=== PATIENT | female | born 1960 | race African-American/Black ===

== ENCOUNTER 2025-09-03 12:25 | Emergency (ER) | payer OTHER, SELFPAY ==
[2025-09-03] VITALS (9 sets, daily range): BP systolic 144–218; BP diastolic 74–102; PULSE 75–117; RESP 22–33; TEMP 37.2; O2SAT 97–100; BMI 59.3
--- NOTE | 2025-09-03 12:38 | ED.CHESTPAIN ---
HPI - Chest Pain General Chief Complaint: Chest Pain Stated Complaint: chest pain d/t being out of BP meds Time Seen by Provider: 09/03/25 12:38 Source: patient, RN notes reviewed and old records reviewed Mode of arrival: Family Vehicle Limitations: no limitations History of Present Illness HPI narrative: 64-year-old female history of coronary artery disease with prior IA, stage 4 chronic kidney disease, hypertension, hypothyroidism, bipolar/schizophrenia who presents with complaint of elevated blood pressure. Patient states she recently ran out of her medications she has been out of them for at least 4 or 5 days she states that is several of her medications but not all. Patient recently moved here from [facility] about 3 weeks ago she has been trying to set up primary care for follow up but has been unsuccessful secondary to insurance issues. Patient notes she has occasionally had some chest discomfort, states none currently. No shortness of breath currently denies fevers or chills. No nausea or vomiting. No GI or urinary symptoms. No diaphoresis. No new swelling of extremities. Patient states she has not had any prior cardiac interventions but did have a heart attack in the past, she has had a thyroidectomy, . No tobacco, no alcohol, has used marijuana but no recreational drugs. Patient states that there has been discussion about following up with Nephrology to get established for future dialysis but has not occurred before leaving [place]. Home medications include aspirin 81 mg daily, trazodone 100 mg nightly, oxybutynin 24 mg daily, nifedipine 30 mg extended release once daily, carvedilol 25 mg b.i.d., lisinopril 40 mg daily, hydralazine 100 mg t.i.d., nitro sublingual 0.4 mcg PRN, furosemide 40 mg daily, levothyroxine 200 mcg daily, senna side 2 tablets daily as needed for constipation. Methocarbamol 750 mg q.i.d., lurasidone 40 mg 1 tablet nightly, sumatriptan 100 mg 1 tablet can repeat 2 hours later for migraines PRN and Ozempic 0.25-0.5 mg as well as Novolin 70/30, with 30 units in the a.m. and 10 units subcutaneous in the p.m. Related Data Home Medications ?Medication ?Instructions ?Recorded ?Confirmed aspirin 81 mg tablet 81 mg PO DAILY 09/03/25 09/03/25 hydralazine 100 mg tablet 100 mg PO TID 09/03/25 09/03/25 methocarbamol 750 mg tablet 750 mg PO QID PRN muscle spasm 09/03/25 09/03/25 nitroglycerin 0.4 mg sublingual 0.4 mg sublingual Q5-15M PRN chest 09/03/25 09/03/25 tablet (Nitrostat) pain sennosides 8.6 mg-docusate sodium 2 tab-cap PO DAILY PRN constipation 09/03/25 09/03/25 50 mg tablet (Senna with Docusate Sodium) sumatriptan succinate 100 mg tablet 100 mg PO .at start of headache 09/03/25 09/03/25 PRN migraine headache Previous Rx's ?Medication ?Instructions ?Recorded carvedilol 25 mg tablet 25 mg PO BID #60 caps 09/03/25 carvedilol 25 mg tablet 25 mg PO BID #60 tabs 09/03/25 furosemide 40 mg tablet 40 mg PO DAILY #30 tabs 09/03/25 furosemide 40 mg tablet 40 mg PO DAILY #30 tabs 09/03/25 hydralazine 100 mg tablet 100 mg PO TID #90 tabs 09/03/25 hydralazine 100 mg tablet 100 mg PO TID #90 tabs 09/03/25 insulin NPH-regular 70-30 U-100 See Rx Instructions .Route 09/03/25 insulin 100 unit/mL subcutaneous .COMPLEX #15 mL pen (Novolin 70-30 FlexPen U-100 Insulin) levothyroxine 200 mcg capsule 200 mcg PO DAILY #30 caps 09/03/25 levothyroxine 200 mcg capsule 200 mcg PO DAILY #30 caps 09/03/25 lisinopril 40 mg tablet 40 mg PO DAILY #30 tabs 09/03/25 lisinopril 40 mg tablet 40 mg PO DAILY #30 tabs 09/03/25 lurasidone 40 mg tablet 40 mg PO QPM #30 tabs 09/03/25 lurasidone 40 mg tablet 40 mg PO QPM sleep #30 tabs 09/03/25 nifedipine 30 mg tablet,extended 30 mg PO DAILY #30 tabs 09/03/25 release nifedipine 30 mg tablet,extended 30 mg PO DAILY #30 tabs 09/03/25 release oxybutynin chloride 5 mg tablet 5 mg PO DAILY #30 tabs 09/03/25 oxybutynin chloride 5 mg 5 mg PO DAILY #30 tabs 09/03/25 tablet,extended release 24 hr semaglutide 0.25 mg or 0.5 mg (2 0.5 mg (0.374 mL) SUBCUT QWEEK 09/03/25 mg/1.5 mL) subcutaneous pen #1.5 mL injector semaglutide 0.25 mg or 0.5 mg (2 0.5 mg (0.736 mL) SUBCUT QWEEK #4 09/03/25 mg/3 mL) subcutaneous pen injector mL (Ozempic) trazodone 100 mg tablet 100 mg PO BEDTIME #30 tabs 09/03/25 trazodone 100 mg tablet 100 mg PO BEDTIME PRN sleep #30 09/03/25 tabs Allergies Allergy/AdvReac Type Severity Reaction Status Date / Time No Known Drug Allergies Allergy Verified 09/03/25 12:37 Review of Systems Review of Systems ROS Unobtainable: All systems reviewed & are unremarkable except as noted in HPI and below Patient History Social History Smoking Status: Current every day smoker Exam Narrative Exam Narrative: GENERAL: Alert and oriented x three, female in mild distress. HEENT: Head normocephalic, atraumatic, EOMI, pupils reactive, face symmetric, moist mucous membranes NECK: Supple, full range of motion CARDIOVASCULAR: Regular rate and rhythm without murmurs, rubs or gallops. No JVD. No edema bilateral lower extremities. RESPIRATORY: Breath sounds equal bilaterally, no wheezes rales or rhonchi. No tachypnea or accessory muscle use. ABDOMEN: Soft, nontender. Normoactive bowel sounds all 4 quadrants. No guarding or rebound, rigidity, no mass : No CVA tenderness EXTREMITIES: Normal range of motion, no clubbing or edema. Neurovascularly intact NEUROLOGICAL: Cranial nerves II through XII grossly intact. Moving all extremities SKIN: Warm, dry, no petechiae, no rashes or lesions. Initial Vital Signs Initial Vital Signs: Vital Signs Pulse Rate 117 H 09/03/25 12:34 Pulse Oximetry 99 09/03/25 12:34 Course Orders Ordered: ED Orders 09/03/25 12:45 XR chest 1V Stat EKG-12 Lead Stat 09/03/25 12:50 Complete Blood Count AUTO DIFF Stat Comprehensive Metabolic Panel Stat Lipase Stat Magnesium Stat NT-proBNP (BNP-Adult 18+) Stat PTT Partial Thromboplastin Eliot Stat Prothrombin Time INR Stat Troponin & CK Cardiac Panel Stat 09/03/25 12:53 Consult to INSTRUMENTATION SPECIALIST - Gauge Operator Stat Discontinued Medications Lisinopril (Lisinopril 20 Mg Tablet) 40 mg PO NOW ONE Stop: 09/03/25 13:57 Last Admin: 09/03/25 14:19 Dose: 40 mg Documented By: DKB Nitroglycerin (Nitroglycerin 0.4 Mg Sl Tab) 0.4 mg SL NOW ONE Stop: 09/03/25 12:46 Last Admin: 09/03/25 12:48 Dose: 0.4 mg Documented By: RB Vital Signs Vital signs: Vital Signs - 8 hr 09/03/25 12:34 09/03/25 12:36 09/03/25 12:36 Temperature Pulse Rate 117 H 96 H Respiratory Rate 25 H Blood Pressure 216/102 H Pulse Oximetry 99 100 Oxygen Delivery Method 09/03/25 12:37 09/03/25 12:48 09/03/25 12:54 Temperature 99 F Pulse Rate 90 82 Respiratory Rate 28 H Blood Pressure 218/102 H 218/102 H 144/74 H Pulse Oximetry 97 Oxygen Delivery Method Room Air 09/03/25 12:54 09/03/25 13:00 09/03/25 13:00 Temperature Pulse Rate 85 78 Respiratory Rate 24 22 Blood Pressure 178/94 H Pulse Oximetry 100 100 Oxygen Delivery Method 09/03/25 13:30 09/03/25 13:30 09/03/25 14:00 Temperature Pulse Rate 80 78 Respiratory Rate 33 H Blood Pressure 184/86 H Pulse Oximetry 99 98 Oxygen Delivery Method 09/03/25 14:00 09/03/25 14:19 Temperature Pulse Rate 75 Respiratory Rate Blood Pressure 159/80 H 159/80 H Pulse Oximetry Oxygen Delivery Method MDM - Chest Pain Lab Data 09/03/25 12:50 09/03/25 12:50 Labs: Lab Results 09/03/25 Range/Units 12:50 WBC 7.9 (4.5-11.0) X10^3/uL RBC 4.28 (4.0-5.2) X10^6/uL Hgb 11.1 L (12.0-16.0) g/dL Hct 34.4 L (36-46) % MCV 80.5 (80-100) fL MCH 25.9 L (26-34) PG MCHC 32.2 (30-36) % RDW 18.2 H (11.6-14.8) % Plt Count 223 (150-400) X10^3/uL Neut % (Auto) 73.3 (50-75) % Lymph % (Auto) 19.1 L (25-40) % Miller % (Auto) 5.2 (3-14) % Eos % (Auto) 1.4 L (2-4) % Baso % (Auto) 1.0 (0-2) % Neut # (Auto) 5800 (7872-0473) /uL Lymph # (Auto) 1500 (2672-2041) /uL Miller # (Auto) 400 (0-900) /uL Eos # (Auto) 100 (0-450) /uL Baso # (Auto) 100 (0-100) /uL PT 11.8 (9.4-12.5) SECONDS INR 1.0 (0.9-1.3) APTT 25 L (25.1-36.5) SECONDS Sodium 143 (137-145) mmol/L Potassium 3.3 L (3.4-5.1) mmol/L Chloride 108 H (98-107) mmol/L Carbon Dioxide 25 (22-32) mmol/L BUN 9 (7-17) mg/dL Creatinine 1.51 H (0.52-1.04) mg/dL Estimated GFR 39 L (>60) mL/min BUN/Creatinine Ratio 6.0 (6-22) Glucose 124 H (70-99) mg/dL Calcium 8.6 (8.4-10.2) mg/dL Magnesium 1.8 (1.6-2.3) mg/dL Total Bilirubin 0.5 (0.2-1.3) mg/dL AST 23 (14-36) IU/L ALT 17 (<35) IU/L Alkaline Phosphatase 70 (38-126) U/L Total Creatine Kinase 142 H (30-135) U/L Troponin I 0.015 (0.01-0.034) ng/mL NT-Pro-B Natriuret Pep 410 H (<125) pg/mL Total Protein 8.1 (6.3-8.2) g/dL Albumin 4.3 (3.5-5.0) g/dL Globulin 3.8 (1.7-4.1) g/dL Albumin/Globulin Ratio 1.1 (1.0-2.8) Lipase 176 (23-300) U/L ECG Data Attestation: I personally reviewed and interpreted this ECG as follows: Prior ECG tracings: not available for review Interpretation: Sinus rhythm rate 85 MA 146 QRS 86 QTC of 459, no acute ST-elevation nonspecific change. No priors for comparison. MDM Narrative Medical decision making narrative: 64-year-old female known coronary artery disease, chronic kidney disease stage 4, hypertension, hypothyroidism, bipolar/schizophrenia is out of several of her medications particularly blood pressure medications. She is out of her oxybutynin, carvedilol, lisinopril and hydralazine. We will obtain labs to check for any major changes to labs patient notes she has CKD stage 4. She has had some chest discomfort at times but also been quite hypertensive. She is 210 systolic over 100 diastolic here in the department. Suspect patient's chest discomfort maybe related to her hypertensive has been out of her medications. Labs show white count 7.9 hemoglobin 11.1, platelets are 223, INR is 1 with a PTT of 25. Patient's potassium slightly low at 3.3 chloride is 108 creatinine is 1.51 with a GFR of 39 BUN normal at 9, glucose is 124 LFTs are otherwise appropriate troponin 0.015 with a BNP of 410 total CK is 142. EKG sinus rhythm rate [address] changes Chest x-ray formal read shows interstitial prominence seen throughout has not nonspecific maybe related to pulmonary edema consider atypical infection including viral pneumonia low lung volumes noted postoperative did not arm changes are seen. Patient received a dose of nitro sublingual. On re-evaluation repeat blood pressure is 180s over 86. Discussed with the patient plan for discharge with refills of her medications for 30 days. Patient had an adequate supply of some of her other medications. Patient requesting discharge home. Patient did meet with the INSTRUMENTATION SPECIALIST to see about getting her a follow up appointment or help with adjusting her insurance from [place] to [place]. Discussed she can call back to chat or meet with our psychiatric social worker supervisor for assistance as needed. Discharge Plan Departure Patient Disposition: Home Clinical Impression: Hypertension Activity Restrictions/Additional Instructions: Follow up with the application to switch your insurance. If you have questions you can reach out to our psychiatric social worker supervisor at [phone] (ED number), they are typically here between 11a-7p most days of the week and weekend. I did include contact for nephrology, they may have an office in [place]. The next closest nephrology is in [place]. [facility] [place]. If you have new or concerning changes please return to the emergency department, new chest pain, new shortness of breath, lightheadedness or passing out, new swelling of your extremities or other new or concerning changes. Prescriptions: New carvedilol 25 mg tablet 25 mg PO BID Qty: 60 0RF Rx Instructions: must administer with a meal/food furosemide 40 mg tablet 40 mg PO DAILY Qty: 30 0RF nifedipine 30 mg tablet extended release 30 mg PO DAILY Qty: 30 0RF trazodone 100 mg tablet 100 mg PO BEDTIME Qty: 30 0RF hydralazine 100 mg tablet 100 mg PO TID Qty: 90 0RF lisinopril 40 mg tablet 40 mg PO DAILY Qty: 30 0RF lurasidone 40 mg tablet 40 mg PO QPM Qty: 30 0RF Rx Instructions: must administer with food (at least 350 calories) semaglutide 0.25 mg or 0.5 mg(2 mg/1.5 mL) pen injector 0.5 mg SUBCUT QWEEK Qty: 1.5 0RF levothyroxine 200 mcg capsule 200 mcg PO DAILY Qty: 30 0RF Novolin 70-30 FlexPen U-100 100 unit/mL (70-30) insulin pen See Rx Instructions .ROUTE .COMPLEX Qty: 15 0RF Rx Instructions: 30units subcutaneous q.a.m., 10 units subcutaneous q.p.m. oxybutynin chloride 5 mg tablet 5 mg PO DAILY Qty: 30 0RF Continued furosemide 40 mg tablet 40 mg PO DAILY Qty: 30 0RF carvedilol 25 mg tablet 25 mg PO BID Qty: 60 0RF Rx Instructions: must administer with a meal/food nifedipine 30 mg tablet extended release 30 mg PO DAILY Qty: 30 0RF trazodone 100 mg tablet 100 mg PO BEDTIME PRN (Reason: sleep) Qty: 30 0RF hydralazine 100 mg tablet 100 mg PO TID Qty: 90 0RF oxybutynin chloride 5 mg tablet extended release 24hr 5 mg PO DAILY Qty: 30 0RF lisinopril 40 mg tablet 40 mg PO DAILY Qty: 30 0RF lurasidone 40 mg tablet 40 mg PO QPM Qty: 30 0RF Rx Instructions: must administer with food (at least 350 calories) levothyroxine 200 mcg capsule 200 mcg PO DAILY Qty: 30 0RF Ozempic 0.25 mg or 0.5 mg (2 mg/3 mL) pen injector 0.5 mg SUBCUT QWEEK Qty: 4 0RF No Action methocarbamol 750 mg tablet 750 mg PO QID PRN (Reason: muscle spasm) sumatriptan succinate 100 mg tablet 100 mg PO .at start of headache PRN (Reason: migraine headache) Rx Instructions: take 1 tab at onset of headache; if no relief, may repeat 1 tab after at least 2 hrs; max = 2 tabs/24 hrs sennosides-docusate sodium [Senna with Docusate Sodium] 8.6-50 mg tablet 2 tab-cap PO DAILY PRN (Reason: constipation) hydralazine 100 mg tablet 100 mg PO TID nitroglycerin [Nitrostat] 0.4 mg tablet, sublingual 0.4 mg sublingual Q5-15M PRN (Reason: chest pain) Rx Instructions: do not exceed 3 doses per episode aspirin 81 mg tablet 81 mg PO DAILY Referrals: Lexx Rincon PA-C [Non-Staff, Nephrology] Stand Alone Forms: Patient Portal/API
--- NOTE | 2025-09-03 12:45 | DI.RAD.S_ITS ---
PROCEDURE: XR CHEST 1V INDICATIONS: Chest Pain TECHNIQUE: One view of the chest was acquired. COMPARISON: None. FINDINGS: Surgical changes and devices: Lower neck postoperative clips are seen. Lungs and pleura: Mild generalized interstitial prominence can be seen. Low lung volumes are noted. This causes a crowded appearance to the lung markings and limits evaluation. No pleural effusions or pneumothorax. Mediastinum: Mediastinal contours appear normal. Heart size is mildly enlarged. Bones and chest wall: No suspicious bony lesions. Age-appropriate bony degenerative changes are seen. Overlying soft tissues appear unremarkable. IMPRESSION: Interstitial prominence is seen throughout. The interstitial prominence is nonspecific, yet may be related to pulmonary edema. Please consider atypical infection, including viral pneumonia. Low lung volumes noted. Postoperative and degenerative changes are seen. Dictated by: Juan Luis Schmidt M.D. on 09/03/2025 at 12:38 Approved by: Juan Luis Schmidt M.D. on 09/03/2025 at 12:39
--- NOTE | 2025-09-03 12:45 | EKG_ITS ---
[id number] [place] [address] Test Date: 2025-09-03 Pat Name: Poonam Fairchild Department: Room: Gender: Female Group Home Manager: BASHIR : 1960 Requested By: Order Number: [id number] Reading MD: Kristopher House MD Measurements Intervals Edison Rate: 85 P: 51 MD: 146 QRS: 26 QRSD: 86 T: 26 QT: 386 QTc: 459 Interpretive Statements Normal sinus rhythm Nonspecific ST and T wave abnormality Electronically Signed On 09-04-2025 7:28:52 PST by Kristopher House MD
[2025-09-03] MEDS: NITROGLYCERIN 0.4 MG SL TAB SL (12:48)
[2025-09-03 13:07] LABS: Add Manual Diff / Slide Review NO; Hematocrit 34.4 % (36-46); Hemoglobin 11.1 g/dL (12.0-16.0); Lymphocytes Absolute Auto 1500 /uL (1100-4500); Mean Corpuscular HGB Conc 32.2 % (30-36); Mean Corpuscular Hemoglobin 25.9 PG (26-34); Mean Corpuscular Volume 80.5 fL (80-100); Platelet Count 223 X10^3/uL (150-400)
[2025-09-03 13:15] LABS: INR 1.0 (0.9-1.3); Prothrombin Time 11.8 SECONDS (9.4-12.5)
[2025-09-03 13:18] LABS: PTT Partial Thromboplastin Tim 25 SECONDS (25.1-36.5)
[2025-09-03 13:21] LABS: Alanine Aminotransferase 17 IU/L (<35); Albumin 4.3 g/dL (3.5-5.0); Albumin Globulin Ratio 1.1 (1.0-2.8); Blood Urea Nitrogen 9 mg/dL (7-17); Calcium 8.6 mg/dL (8.4-10.2); Carbon Dioxide 25 mmol/L (22-32); Chloride 108 mmol/L (98-107); Creatine Kinase 142 U/L (30-135); Estimated Glomerular Filt Rate 39 mL/min (>60); Globulin 3.8 g/dL (1.7-4.1); Glucose 124 mg/dL (70-99); HEMOLYSIS 18 (0-50); Lipase 176 U/L (23-300); Potassium 3.3 mmol/L (3.4-5.1); Sodium 143 mmol/L (137-145); Total Protein 8.1 g/dL (6.3-8.2)
[2025-09-03 13:22] LABS: Alkaline Phosphatase 70 U/L (38-126); Magnesium 1.8 mg/dL (1.6-2.3)
[2025-09-03 13:32] LABS: NT-proBNP (BNP-Adult 18+) 410 pg/mL (<125); Troponin I 0.015 ng/mL (0.01-0.034)
--- NOTE | 2025-09-03 14:54 | CM.SWNOTE ---
ED HOME HEALTH SPECIALIST Note HOME HEALTH SPECIALIST receives consult to assist in setting patient up with new PCP. Patient is 64 y/o female who presents to ED due to concern for chest pain, SOB and concern for running out of medication. Patient recently moved from [place] to [place], [place]. Patient currently has [facility] Medicaid insurance and no local PCP. HOME HEALTH SPECIALIST enters room to meet with patient briefly, present in room is patient's daughter and grandson. It is reported that patient resides with daughter and grandson in [place]. HOME HEALTH SPECIALIST discusses switching to [facility] Medicaid and ensures that patient has [facility] care packet and phone number for [facility] [employer]. HOME HEALTH SPECIALIST encourages patient to call set up [facility] Medicaid this week. HOME HEALTH SPECIALIST endorses plan for HOME HEALTH SPECIALIST to contact patient on Monday and assist with setting up new PCP. Patient endorses preference to see PCP in [place]. Patient to d/c to home upon medical clearance with a month of refills of her medication. HOME HEALTH SPECIALIST to f/u with patient and PCP clinic in [place] to set up PCP establish care/ED f/u appt for patient. SHELLY Rushing
--- NOTE | 2025-09-05 12:33 | CM.SWNOTE ---
ED KNITTING TEACHER Follow up Note KNITTING TEACHER calls patient's phone number provided, no answer and mail box is currently full. KNITTING TEACHER calls patient's daughter, it is reported that patient was unable to sign up for [facility] Medicaid over the phone and they plan to meet with a [facility] later today ( possibly at [facility]). KNITTING TEACHER offers to check back in with patient on Monday to inquire if she was able to sign up for insurance and assist further with setting up PCP appt for patient and possibly daughter. KNITTING TEACHER to follow up with patient and daughter on Monday. KRISTA RushingSW
== END 2025-09-03 14:36 | disposition home or self-care (01) ==
PROVIDERS: Emergency Provider Emergency Medicine
DX: I10 Essential (primary) hypertension (principal); I25.2 Old myocardial infarction; N18.4 Chronic kidney disease, stage 4 (severe)
CPT/HCPCS: 71045; 80053; 82550; 83690; 83735; 83880; 84484; 85025; 85610; 85730; 93005; 99283; 99284